=== PATIENT | male | born 1940 | race Caucasian/White ===

== ENCOUNTER → 2021-02-22 | Day surgery (SDC) | payer OTHER ==
[~2021-02-22] VITALS: Ht 177.8 cm; Wt 68.0 kg
[~2021-02-22] MED LIST: FUROSEMIDE 20 M20 MG PO; LOSARTAN POTASS50 MG PO; MULTI VITAMIN1 EACH PO
--- NOTE | ~2021-02-22 | O ---
[facility] [place] [address] OPERATIVE REPORT Name: HALEY CASTELLANOS Room #: REG [facility]..#: [id number] Admission: 02/22/21 Attend Phys: Car Ramirez MD Discharge: Date of : 38 Report #: [id number] THIS REPORT FOR: cc: FAM - Family physician unknown FAM - Family physician unknown Car Ramirez MD ~ cc: Reji Perry DATE OF SERVICE: 02/22/2021 PREOPERATIVE DIAGNOSES: 1. Basal cell carcinoma, nose. 2. Mohs defect, right nose, approximately 4 x 4.5 cm. 3. Mohs defect, right medial cheek, approximately 1 x 4 cm. POSTOPERATIVE DIAGNOSES: 1. Basal cell carcinoma, nose. 2. Mohs defect, right nose, approximately 4 x 4.5 cm. 3. Mohs defect, right medial cheek, approximately 1 x 4 cm. PROCEDURES PERFORMED: 1. Paramedian forehead flap, code 38409. 2. Adjacent tissue transfer of the nose, 5-10 square cm, code 70517. 3. Adjacent tissue transfer of the cheek, 5-10 square cm, code 14859. 4. Septal cartilage graft, code 96336. 5. Scar release of the face, code 90788. PRIMARY SURGEON: Car Ramirez MD MEDICAL DIAGNOSTIC RADIOGRAPHER: None. ANESTHESIA: General. COMPLICATIONS: None. ESTIMATED BLOOD LOSS: Approximately 50 mL. DRAINS: None. IMPLANTS: Gelfoam to the right nasal cavity. INDICATIONS FOR PROCEDURE: The patient is an 80-year-old male with a long history of cutaneous malignancies, having undergone multiple excisions and reconstructions in the past. Most recently, this was done in approximately 10/2020 for a large forehead lesion, which resulted in significant scarring of the entire forehead. Recently, he underwent Mohs micrographic excision for a [facility] [address] [place] [address] OPERATIVE REPORT Name: HLAEY CASTELLANOS Room #: REG [facility]..#: [id number] Admission: 02/22/21 Attend Phys: Car Ramirez MD Discharge: Date of : 38 Report #: [id number] large basal cell carcinoma of the right nasal sidewall, which resulted in a complex full-thickness defect of the right nose and a portion of the medial cheek. He was referred to me for formal reconstruction. A discussion was had and he signed consent in the office. DESCRIPTION OF PROCEDURE: The patient was identified in the preoperative area before being transported to the operating room and placed supine on the operating table. At this point, general anesthesia was induced and a timeout was called to ensure patient identity and procedure to be performed. Once all were in agreement, the entire nose was injected with 1% lidocaine with 1:100,000 epinephrine solution and the entire forehead was also injected to achieve local anesthesia and vasoconstriction. Once this was performed, bilateral nasal cavities were packed with Afrin-soaked cottonoid pledgets and allowed to sit for approximately 8-10 minutes time while the patient was prepped and draped in the normal fashion. The table was rotated 90 degrees and starting first, the packs were removed from the nasal cavity. A speculum was inserted into the right nasal cavity and a planned septal hinge flap was marked based anteriorly. Superior and inferior releasing incisions were made along the maxillary crest and up high into the nasal vault running parallel to one another and then a posterior vertical incision connected the two. This was then undermined in a subperichondrial plane and the entire septal hinge flap was reflected anteriorly to adequately cover the defect of the inner layer. This was sutured around its periphery using 5-0 Vicryl suture in an interrupted fashion. This was left pedicled to the anterior septum. At this point, a large portion of septal cartilage was excised to allow shine through of the contralateral mucoperichondrium and also to use as cartilage grafting for the nose. This was placed into a saline bath. At this point, hemostasis was achieved, the nose was thoroughly irrigated and Gelfoam packing was placed in the right nasal cavity along the raw surfaces of the incision lines. Once this was performed, reconstructive grafts made of septal cartilage were fashioned for both the missing lower lateral cartilage and the addition of an alar rim graft. These were cut to size and sutured into position using 5-0 nylon suture. This resulted in good sidewall support of the nose. At this point, several quilting sutures were placed through the septal hinge flap through the new cartilage grafts to coapt these better. At this point, attention was then turned to the right medial cheek. A small skin flap was undermined approximately 2 cm out on to the medial cheek and then direct advancement of the flap was performed. This was approximately 4 cm tall x 2 cm wide resulting in a flap that was approximately 8 square cm. This was then sutured to the periosteum of the nasofacial groove using 4-0 Monocryl sutures in a deep interrupted fashion. At this point, measurements and a template were formed of the defect. This resulted in a 4.5 x 4 cm defect. This [facility] [address] [place] [address] OPERATIVE REPORT Name: HALEY CASTELLANOS Room #: REG [facility]#: [id number] Admission: 02/22/21 Attend Phys: Car Ramirez MD Discharge: Date of : 38 Report #: [id number] was transferred to the right paramedian position based over the supratrochlear artery. The template was traced. Of note, the very distal portion lay just distal to a previous scar of the forehead; however, this was very close and I elected to go ahead and include it in the transferred flap. The forehead flap was then raised in the standard fashion down in the supraperiosteal plane down to a position approximately 1.5 cm superior to the orbital rim. A periosteal incision was made with a #15 blade and this was then raised in a subperiosteal fashion, protecting the pedicle of this supratrochlear artery. At this point, adequate release had been achieved, rotation of the flap was transferred into position on the nose. Several areas were thinned to better match the thickness of the nose and then this was sutured into its defect around the periphery using 5-0 plain gut suture in a running fashion. At this time, attention was turned back to the forehead. Given that the patient had undergone previous forehead surgery resulting in significant amounts of scarring and the overall size of the forehead flap that was removed, there was no possibility of completely closing the forehead. Therefore, I elected to perform wide undermining of the forehead skin and then reduced the size of this using 2-0 Monocryl sutures in a deep fashion. This still resulted in an approximately 2.5 cm wide paramedian forehead defect. Therefore, I placed Xeroform dressing into the wound bed and loosely sutured it around its periphery to allow granulation tissue and healthy healing to start. At this point, the patient was thoroughly cleansed of all old dried blood. Antibiotic ointment was applied to all of the wounds and he was reversed from anesthesia and transported to PACU in stable condition. Please note that all instrument, sponge and needle counts were correct x2. DISPOSITION: The patient will be discharged after meeting general discharge criteria. Given that he lives approximately 3-4 hours away, they will be staying in [facility] before departing for home tomorrow. He has been given prescriptions for pain medication and antibiotics to be started tomorrow. Thorough wound care instructions have been given to the patient's daughter and also handed to them in a written form. By: [id number] Car Ramirez MD /nt
[2021-02-22 07:21] VITALS: BP 146/77
[2021-02-22 10:53] VITALS: BP 146/77
== END | disposition home or self-care (01) ==
LOC: OR 06:18
PROVIDERS: ATTEND Otolaryngology
DX: C44.311 Basal cell carcinoma of skin of nose (principal); M95.0 Acquired deformity of nose; M95.2 Other acquired deformity of head; L90.5 Scar conditions and fibrosis of skin; I10 Essential (primary) hypertension; Z98.890 Other specified postprocedural states; Z79.899 Other long term (current) drug therapy; Z87.891 Personal history of nicotine dependence; Z85.828 Personal history of other malignant neoplasm of skin; Z96.641 Presence of right artificial hip joint; Z98.41 Cataract extraction status, right eye; Z98.42 Cataract extraction status, left eye; Z20.822 Contact with and (suspected) exposure to COVID-19
CPT/HCPCS: 50010; 50101; 50386; 50403; 51412; 51609; 51636; 56525; 56526; 56527; 56528; 57006; 62110; 62900; 70005

== ENCOUNTER → 2021-03-22 | Day surgery (SDC) | payer OTHER ==
[~2021-03-22] VITALS: Ht 172.7 cm; Wt 68.0 kg
[2021-03-22 07:30] VITALS: BP 150/59
--- NOTE | 2021-03-24 09:51 | O ---
[place] [address] [place] [address] OPERATIVE REPORT Name: HALEY CASTELLANOS Room #: REG [facility]..#: [id number] Admission: 03/22/21 Attend Phys: Car Ramirez MD Discharge: Date of : 38 Report #: [id number] THIS REPORT FOR: cc: FAM - Family physician unknown FAM - Family physician unknown Car Ramirez MD ~ cc: Reji Perry DATE OF SERVICE: 03/22/2021 PREOPERATIVE DIAGNOSES: 1. Basal cell carcinoma, nose. 2. Mohs defect, right nose. POSTOPERATIVE DIAGNOSES: 1. Basal cell carcinoma, nose. 2. Mohs defect, right nose. PROCEDURES PERFORMED: 1. Division and inset paramedian forehead flap to nose. 2. Scar release of the face. 3. Full thickness skin graft to forehead. PRIMARY SURGEON: Car Ramirez MD TIN POT OPERATOR: None. ANESTHESIA: General. COMPLICATIONS: None. ESTIMATED BLOOD LOSS: 20 mL. SPECIMENS: None. INDICATIONS: The patient is an 80-year-old male with a long history of cutaneous malignancy, who underwent Mohs micrographic excision for a basal cell carcinoma of the right lateral nasal sidewall, which resulted in a significantly complex full-thickness defect, which was initially repaired approximately 3-1/2 weeks ago by myself using a paramedian forehead flap and the cartilage grafting. He is now scheduled for planned second stage division and inset of the paramedian forehead flap. He signed consent in the office to the above-named procedures. DESCRIPTION OF PROCEDURE: The patient was identified in the preoperative area before being transported to the operating room and placed supine on the [facility] [address] [place] [address] OPERATIVE REPORT Name: HALEY CASTELLANOS Room #: REG [facility] M.R.#: [id number] Admission: 03/22/21 Attend Phys: Car Ramirez MD Discharge: Date of : 38 Report #: [id number] operating table. At this point, general anesthesia was induced and a timeout was called to ensure patient identity and procedure to be performed. Once all were in agreement, the patient was rotated 90 degrees and the pedicle of the paramedian forehead flap was injected locally with 1% lidocaine with 1:100,000 epinephrine solution, followed by injection of the forehead wound and also a planned full thickness skin graft harvest site of the right superior chest wall. The patient was then prepped and draped in normal fashion. Starting first, the pedicle of the paramedian forehead flap was sharply divided using a #15 blade and then proximal and distal portions were returned to the forehead and to the nose, trimmed to size and thickness and sutured in layers using 4-0 Monocryl in the deep layer followed by 5-0 plain gut suture to reapproximate the skin. At this point, attention was turned intranasally. The septal hinge flap that was previously brought over to the lateral nasal sidewall reconstruction site was sharply divided and inset into its new position and held in place with several dissolvable 5-0 plain gut sutures. At this point, attention was turned to the patient's forehead where the wound edges were sharply excised and freshened and scar contracture was released using tenotomy scissors. Minimal undermining was performed before taking measurements of the graft site, which was 6.5 x 3.5 cm. These measurements were transferred to the right superior chest wall, marked and a full-thickness skin graft was harvested from this area and transferred to the patient's forehead. This was sutured into position around its periphery after undergoing trimming with 5-0 plain gut suture. Attention was then turned back to the chest wall. Hemostasis was achieved using bipolar cautery. This was closed in layers using 4-0 Monocryl in the deep layer and 4-0 plain gut suture in a running locking fashion. Finally, a bolster dressing was formed for the forehead full thickness skin graft site. This was sutured down around its periphery using 3-0 silk sutures and this concluded the procedure. Please note that all instrument, sponge and needle counts were correct x2. DISPOSITION: The patient will be discharged after meeting general discharge criteria. He has been given prescriptions for pain medication and antibiotics to be used as directed. He should clean the area 3 times per day and I will see him back in about a week for bolster removal and a wound check. <ELECTRONICALLY SIGNED> By: Car Ramirez MD 03/24/21 [id number] Car Ramirez MD /nt
== END | disposition home or self-care (01) ==
LOC: OR 06:17
PROVIDERS: ATTEND Otolaryngology
DX: C44.311 Basal cell carcinoma of skin of nose (principal); M95.0 Acquired deformity of nose; I10 Essential (primary) hypertension; Z98.890 Other specified postprocedural states; Z79.899 Other long term (current) drug therapy; Z20.822 Contact with and (suspected) exposure to COVID-19; Z87.891 Personal history of nicotine dependence; Z96.641 Presence of right artificial hip joint; Z85.828 Personal history of other malignant neoplasm of skin; Z98.41 Cataract extraction status, right eye; Z98.42 Cataract extraction status, left eye
CPT/HCPCS: 50010; 50101; 50386; 50403; 51412; 56524; 56526; 56527; 56528; 57006; 62110; 62900; 70005